=== PATIENT | male | born 1955 | race Caucasian/White ===

== ENCOUNTER → 2016-07-21 | Outpatient (CLI) | payer BC ==
[~2016-07-21] MED LIST: AMBIEN5 MG PO; BUMEX 1MG TABLET1 MG PO; COLCHICINE 0.60.6 MG PO; DIABETA 5 MG TAB5 MG PO; ENTRESTO PO; FERROUS SULFAT325 M2 PO; HYDRALAZINE HCL25 MG PO; IMDUR ER TAB 3030 MG PO; JANUVIA 50 MG T50 MG PO; LEVAQUIN750 MG PO; LEVEMIR FL100 UNIT/1 SQ; LEVOTHYROXINE25 MCG PO; LOPRESSOR 25 MG25 MG PO; LORTAB 5-325 M1 EACH PO; MEDROL DOSEPAK 24 MG PO; METOLAZONE5 MG PO; PROTONIX40 MG PO; SKELAXIN800 MG PO; TYLENOL 325MG325 MG PO; ZOCOR20 MG PO; ZYLOPRIM 100 M100 MG PO
== END ==
LOC: LAB 09:23
PROVIDERS: Internal Medicine Nephrology
DX: N18.3 Chronic kidney disease, stage 3 (moderate) (principal)
CPT/HCPCS: 36415; 80048

== ENCOUNTER 2016-07-27 17:54 | Inpatient (IN) | payer BC ==
[~2016-07-27 17:54] MED LIST changes: -COLCHICINE 0.60.6 MG PO; -LEVAQUIN750 MG PO; -LEVEMIR FL100 UNIT/1 SQ; -MEDROL DOSEPAK 24 MG PO; -PROTONIX40 MG PO; -SKELAXIN800 MG PO; -TYLENOL 325MG325 MG PO; -ZYLOPRIM 100 M100 MG PO
[2016-07-27 23:54] LABS: HEMOGLOBIN 8.8 gm/dl (14.0-17.5); RED BLOOD COUNT 2.85 M/UL (4.20-5.50); WHITE BLOOD COUNT 7.3 K/UL (4.5-11.0)
[2016-07-29 04:54] LABS: RED BLOOD COUNT 2.64 M/UL (4.20-5.50); WHITE BLOOD COUNT 6.8 K/UL (4.5-11.0)
[2016-07-30 05:26] LABS: RED BLOOD COUNT 2.63 M/UL (4.20-5.50); WHITE BLOOD COUNT 7.6 K/UL (4.5-11.0)
[2016-07-30] MEDS ORDERED: LEVAQUIN750 MG PO (10:38)
[2016-07-30] MEDS ORDERED: SKELAXIN800 MG PO (10:39)
[2016-07-30] MEDS ORDERED: TYLENOL 325MG325 MG PO (10:44)
[2016-07-30] MEDS ORDERED: IMDUR ER TAB 3030 MG PO (10:51)
== END 2016-07-30 12:21 | disposition home or self-care (01) | DRG 603 ==
LOC: ER1 17:54 → ZEROF 07-28 02:03 → MED SURG 4 07-28 02:03
PROVIDERS: Family Medicine; ADMIT Family Medicine
DX: L03.114 Cellulitis of left upper limb (principal); I13.0 Hypertensive heart and chronic kidney disease with heart failure and stage 1 through stage 4 chronic kidney disease, or unspecified chronic kidney disease; I50.22 Chronic systolic (congestive) heart failure; E03.9 Hypothyroidism, unspecified; I25.5 Ischemic cardiomyopathy; N18.3 Chronic kidney disease, stage 3 (moderate); E11.21 Type 2 diabetes mellitus with diabetic nephropathy; M20.022 Boutonniere deformity of left finger(s); M24.542 Contracture, left hand; E11.22 Type 2 diabetes mellitus with diabetic chronic kidney disease; I12.9 Hypertensive chronic kidney disease with stage 1 through stage 4 chronic kidney disease, or unspecified chronic kidney disease; M06.9 Rheumatoid arthritis, unspecified; E78.5 Hyperlipidemia, unspecified; I25.10 Atherosclerotic heart disease of native coronary artery without angina pectoris; D63.1 Anemia in chronic kidney disease; M35.3 Polymyalgia rheumatica; F10.21 Alcohol dependence, in remission; Z88.6 Allergy status to analgesic agent; Z88.8 Allergy status to other drugs, medicaments and biological substances; Z79.891 Long term (current) use of opiate analgesic; Z79.899 Other long term (current) drug therapy; Z80.9 Family history of malignant neoplasm, unspecified; Z83.3 Family history of diabetes mellitus; Z87.891 Personal history of nicotine dependence; Z95.810 Presence of automatic (implantable) cardiac defibrillator; Z87.81 Personal history of (healed) traumatic fracture
CPT/HCPCS: 36415; 73130; 80048; 80053; 80202; 82962; 85025; 85027; 86140; 87040; 96365; 96366; 99283; J3370; J7050; J7070

== ENCOUNTER 2016-08-02 02:19 | Inpatient (IN) | payer BC ==
[~2016-08-02] VITALS: Ht 177.8 cm; Wt 90.7 kg
[~2016-08-02 02:19] MED LIST changes: +LEVAQUIN750 MG PO; +SKELAXIN800 MG PO; +TYLENOL 325MG325 MG PO
[2016-08-02 03:57] LABS: HEMOGLOBIN 7.9 gm/dl (14.0-17.5); RED BLOOD COUNT 2.57 M/UL (4.20-5.50)
[2016-08-02 04:14] LABS: BUN/CREATININE RATIO 24 (0-10)
[2016-08-02] MEDS ORDERED: METOLAZONE5 MG PO (10:03)
[2016-08-03 06:20] LABS: HEMOGLOBIN 8.8 gm/dl (14.0-17.5); WHITE BLOOD COUNT 9.9 K/UL (4.5-11.0)
[2016-08-03 06:23] LABS: RED BLOOD COUNT 2.87 M/UL (4.20-5.50)
[2016-08-04 04:15] LABS: HEMOGLOBIN 7.4 gm/dl (14.0-17.5)
[2016-08-04 04:22] LABS: RED BLOOD COUNT 2.46 M/UL (4.20-5.50); WHITE BLOOD COUNT 12.6 K/UL (4.5-11.0)
[2016-08-05 04:14] LABS: HEMOGLOBIN 8.1 gm/dl (14.0-17.5); WHITE BLOOD COUNT 11.4 K/UL (4.5-11.0)
[2016-08-05 04:23] LABS: RED BLOOD COUNT 2.74 M/UL (4.20-5.50)
--- NOTE | 2016-08-06 09:00 | NUR ---
patient request for education r/t insulin. demonstrated how to give insulin. request for a little bit more practice r/t has not given one and his concern because of both hands affected with arthritis.
--- NOTE | 2016-08-06 10:44 | NUR ---
REPORTED TO DR. CUMMINGS PATIENT ORDER AND REPORTED HE WILL SEE PATIENT ON THE FLOOR
[2016-08-06] MEDS ORDERED: COLCHICINE 0.60.6 MG PO (12:45)
[2016-08-06] MEDS ORDERED: LEVEMIR FL100 UNIT/1 SQ (12:46)
[2016-08-06] MEDS ORDERED: MEDROL DOSEPAK 24 MG PO (12:47)
[2016-08-06] MEDS ORDERED: ZYLOPRIM 100 M100 MG PO (12:47)
[2016-08-06] MEDS ORDERED: PROTONIX40 MG PO (12:48)
--- NOTE | 2016-08-06 13:17 | NUR ---
AFTER DEMONSTRATING TO PATIENT HOW TO ADMINISTER INSULIN INJECTION AND PROVIDED EDUCATION R/T INSULIN PATIENT SATISFIED AND VERB UNDERSTANDING. PATIENT DEMONSTRATED IN RETURN HOW TO ADMINISTER INSULIN AND VERB CONFIDENCE THAT HE WILL NOT HAVE ANY TROUBLE GIVING HIMSELF
== END 2016-08-06 15:20 | disposition home or self-care (01) | DRG 553 ==
LOC: ER1 02:19 → ZEROF 05:10 → MED SURG 4 05:10
PROVIDERS: Family Medicine; Orthopaedic Surgery; ADMIT Emergency Medicine
PROC: 30233N1 Transfusion of Nonautologous Red Blood Cells into Peripheral Vein, Percutaneous Approach (ICD-10-PCS; principal; 2016-08-04)
DX: M10.241 Drug-induced gout, right hand (principal); I50.23 Acute on chronic systolic (congestive) heart failure; I13.0 Hypertensive heart and chronic kidney disease with heart failure and stage 1 through stage 4 chronic kidney disease, or unspecified chronic kidney disease; N17.9 Acute kidney failure, unspecified; N18.4 Chronic kidney disease, stage 4 (severe); E87.1 Hypo-osmolality and hyponatremia; M10.441 Other secondary gout, right hand; T50.905A Adverse effect of unspecified drugs, medicaments and biological substances, initial encounter; M1A.2 Drug-induced chronic gout; E11.22 Type 2 diabetes mellitus with diabetic chronic kidney disease; I25.5 Ischemic cardiomyopathy; I25.10 Atherosclerotic heart disease of native coronary artery without angina pectoris; D63.1 Anemia in chronic kidney disease; D50.9 Iron deficiency anemia, unspecified; M35.3 Polymyalgia rheumatica; E11.65 Type 2 diabetes mellitus with hyperglycemia; T38.0X5A Adverse effect of glucocorticoids and synthetic analogues, initial encounter; E03.9 Hypothyroidism, unspecified; E87.5 Hyperkalemia; E78.5 Hyperlipidemia, unspecified; T50.1X5A Adverse effect of loop [high-ceiling] diuretics, initial encounter; T46.5X5A Adverse effect of other antihypertensive drugs, initial encounter; M20.022 Boutonniere deformity of left finger(s); Z95.810 Presence of automatic (implantable) cardiac defibrillator; Z87.891 Personal history of nicotine dependence; Z87.898 Personal history of other specified conditions; Z79.84 Long term (current) use of oral hypoglycemic drugs; Z79.1 Long term (current) use of non-steroidal anti-inflammatories (NSAID); Z79.891 Long term (current) use of opiate analgesic; Z79.899 Other long term (current) drug therapy; Z88.6 Allergy status to analgesic agent; Z88.8 Allergy status to other drugs, medicaments and biological substances; Z98.890 Other specified postprocedural states; Z82.3 Family history of stroke; Z82.49 Family history of ischemic heart disease and other diseases of the circulatory system; Z83.3 Family history of diabetes mellitus; Z82.69 Family history of other diseases of the musculoskeletal system and connective tissue; Z80.9 Family history of malignant neoplasm, unspecified
CPT/HCPCS: 36415; 36430; 73080; 73110; 73130; 73200; 80048; 80053; 80202; 80307; 81001; 82272; 82570; 82607; 82728; 82962; 83540; 83550; 84156; 84443; 84550; 85025; 85027; 85379; 86039; 86140; 86431; 86850; 86900; 86901; 86920; 87040; 96374; 96375; 99284; G0480; J1335; J1650; J1940; J2270; J2405; J2920; J2930; J3370; J7040; J7050; J7070; J7509; P9016

== ENCOUNTER → 2016-08-11 | Outpatient (CLI) | payer BC ==
[~2016-08-11] MED LIST changes: +COLCHICINE 0.60.6 MG PO; +LEVEMIR FL100 UNIT/1 SQ; +MEDROL DOSEPAK 24 MG PO; +PROTONIX40 MG PO; +ZYLOPRIM 100 M100 MG PO
== END ==
LOC: LAB 10:22
PROVIDERS: Emergency Medicine
DX: N17.8 Other acute kidney failure (principal)
CPT/HCPCS: 36415; 80048

== ENCOUNTER → 2016-10-09 | Outpatient (CLI) | payer BC | LOC: KOH-I 16:02 | DX: M25.562 Pain in left knee (principal); M25.462 Effusion, left knee | CPT/HCPCS: 73562 ==